=== PATIENT | female | born 1995 | race Caucasian/White ===

== ENCOUNTER → 2019-03-20 09:13 | Outpatient (CLI) | payer BC, SELFPAY ==
--- NOTE | 2019-03-20 09:18 | BI_ITS ---
MAMMOGRAPHY - BILATERAL DIAGNOSTIC REASON FOR EXAM: Female, 24 years old. Tenderness in the lateral aspects of both breast, no masses palpated. Mediolateraloblique and craniocaudal views demonstrate no evidence of dominant parenchymal masses. No cluster of microcalcifications or architectural distortion is seen. No evidence of skin thickening is identified. This is a baseline mammogram so no comparisons are available. Breast Density: The breast tissue is extremely dense which may lower the sensitivity of mammography. CAD was used to assist in final assessment. BI/DIAG MAMM W/CAD, BILAT IMPRESSION: NORMAL MAMMOGRAM BILATERALLY. ASSESSMENT CATEGORY: BIRADS Category 1: Negative. A letter regarding these results will be sent to the patient by the facility within 30 days. FOLLOW UP RECOMMENDATION: No imaging follow up needed. (O) Approximately 10% of breast cancers are not detected by mammography. A normal mammogram should not delay biopsy of a clinically suspicious abnormality. Electronically Signed: Daquan Nayak, at 18:12 EDT Tel , Service support ,
== END ==
PROVIDERS: Family Provider Internal Medicine; PCP Internal Medicine; Referring Provider Obstetrics & Gynecology; Visit Provider Obstetrics & Gynecology
DX: N64.4 Mastodynia (principal)
CPT/HCPCS: 77062; 77066; G0279

== ENCOUNTER 2019-11-02 21:01 | Emergency (ER) | payer BC, SELFPAY ==
[2019-11-02 21:01] VITALS: BP 150/96; PULSE 110; RESP 20; TEMP 36.2; O2SAT 99; BMI 28.9
--- NOTE | 2019-11-02 22:24 | ED.DCSUM_ITS ---
- ER Visit Summary Date of Service: 11/02/19 Chief Complaint: Recently diagnosed with C. difficile. Complaining just malaise and nausea. History of Present Illness: The patient is a 24 F medical history of asthma. States she gets headaches from time to time. Diagnosed with C. difficile on Sunday has been on oral vancomycin and Bentyl. Said the stools are starting to improve. She has had probably 10 bowel movements in the last 24 hours. States initially they thought she had IBS but recently worked her up for her diarrhea which is gotten worse in the last 6 months and determined she had C. difficile. Patient has a mild headache. No family history of intracranial bleeds or aneurysms. She gets headaches from time to time. Denies any neurological symptoms. Denies any falls or trauma. Physical Examination: Ill-appearing young female. Vital signs are stable afebrile. HEENT exam mildly dry mucous membranes. Neck nontender. No meningismus. No lymphadenopathy. Lungs clear to auscultation bilaterally. Heart regular rhythm no murmur. Abdomen soft nontender normal bowel sounds no peritoneal signs. Remedies moves all 4. Neurovascular intact. Equal symmetrical bundle cutter strength. Fingertip to nose within normal limits. Dorsi plantarflexion intact. Neurologic exam normal NIH is 0. Test Results: [] Emergency Department Course and Treatment: Patient treated with IV fluids x1 L. IV Toradol and Zofran for nausea. Clinically her exam is unremarkable other than possibly mild dehydration. Treatment Plan: [] Disposition: discharge Impression: Diarrhea secondary to recently diagnosed C. difficile Cephalgia This note was generated with [employer] dictation software. It may contain incorrect words, spelling, and punctuation that were not noted in review of the chart prior to signing ED Disposition - Plan for ED Patient: Referrals: Yudith Mukherjee MD [Primary Care Provider] -
[2019-11-02 22:46] VITALS: BP 129/99; PULSE 94; RESP 18; TEMP 37.1; O2SAT 100
[2019-11-02] MEDS: 0.9% Normal Saline 1,000 ML 1000 ML IV (22:47)
[2019-11-02] MEDS: Ketorolac 30 MG/ML Syringe IV (22:47)
[2019-11-02] MEDS: Ondansetron 4 MG/2 ML Vial IV (22:47)
[2019-11-02 22:58] LABS: Absolute Lymphocyte Count 2.32 X10^3/uL (0.83-4.51); Absolute Neutrophil Count 4.6 X10^3/uL (2.0-7.7); Basophil# 0.03 X10^3/uL; Basophil% 0.4 % (0-1); Eosinophil# 0.07 X10^3/uL; Eosinophils% 0.9 % (0-5); Hematocrit 40.2 % (37-47); Hemoglobin 13.1 g/dL (12.0-15.0); Lymphocyte # 2.32 X10^3/ul (4.0); Lymphocyte % 29.6 % (19-41); Mean Corp Hgb Conc 32.6 g/dL (32-36); Mean Corpuscular Hgb 29.4 pg (27.0-32.0); Mean Corpuscular Volume 90.1 fL (81-99); Mean Platelet Vol. 11.6 fl (6.2-12.0); Monocyte# 0.76 X10^3/uL; Monocyte% 9.7 % (0-10); NRBC Flagged by Analyzer 0 % (0-5); Neutrophil # 4.62 X10^3/uL (2.7-7.7); Platelet Count 361 K/mm3 (150-450); RBC Distribution Width CV 13.7 % (11.6-14.6); RBC Distribution Width SD 45.4 fl (35.1-43.9); Red Blood Count 4.46 M/mm3 (4.2-5.4); White Blood Count 7.8 K/mm3 (4.4-11.0)
[2019-11-02 23:37] VITALS: BP 131/89; PULSE 86; RESP 16; TEMP 37.1; O2SAT 100
--- NOTE | 2019-11-02 23:50 | ED.DEP ---
ED Disposition - Plan for ED Patient: Disposition: Home or Assisted Living Instructions: Clostridium Difficile Toxin Stool Prescriptions: Ondansetron [Zofran Odt] 4 mg PO Q8H PRN PRN #10 tab PRN Reason: Nausea Prescription Printed Referrals: Yudith Mukherjee MD [Primary Care Provider] - 3-5 Days if not improving Additional Instructions: Continue your vancomycin for your C. difficile. Zofran as needed for nausea. Plenty of fluids and rest. Follow-up with your doctor as needed.
[2019-11-02 23:54] LABS: Anion Gap 7 (5-15); BUN 10 mg/dL (7-18); BUN/Creat Ratio 22.9 RATIO (10-20); Calcium,Total 8.3 mg/dL (8.5-10.1); Chloride 112 mmol/L (98-107); Creatinine, Serum 0.44 mg/dL (0.55-1.02); EST Glomerular Filtration Rate 186 mL/min (>60); Est Glom Filt Rate - Afr Amer 225 mL/min (>60); Estimated Creatinine Clearance 154.59 ml/min; Glucose 77 mg/dL (74-106); Potassium 3.4 mmol/L (3.5-5.1); Sodium Level 140 mmol/L (136-145)
== END 2019-11-03 00:04 | disposition home or self-care (01) ==
PROVIDERS: Emergency Provider Emergency Medicine; PCP Internal Medicine
DX: A04.72 Enterocolitis due to Clostridium difficile, not specified as recurrent (principal); R51 Headache; J45.909 Unspecified asthma, uncomplicated
CPT/HCPCS: 80048; 85025; 96361; 96374; 96375; 99284; J7030; A4216; J2405

== ENCOUNTER → 2020-06-29 | Outpatient (CLI) | payer OTHER, SELFPAY ==
[2020-07-02 03:07] LABS: Chlamydia By Nucleic Acid AMP Negative (Negative)
[2020-07-02 20:17] LABS: Gonococcus By Nucleic Acid AMP Negative (Negative)
[2020-07-02 20:52] LABS: HPV Reflexed? NOT INDICATED
== END | disposition home or self-care (01) ==
LOC: LABSPEC 15:14
PROVIDERS: PCP Internal Medicine; Visit Provider Obstetrics & Gynecology
DX: Z12.4 Encounter for screening for malignant neoplasm of cervix (principal); Z11.3 Encounter for screening for infections with a predominantly sexual mode of transmission
CPT/HCPCS: 87491; 87591; 88175; G0145

== ENCOUNTER → 2020-12-16 16:03 | Outpatient (CLI) | payer OTHER, SELFPAY ==
--- NOTE | 2020-12-16 16:07 | BI_ITS ---
MAMMOGRAPHY - BILATERAL SCREENING REASON FOR EXAM: Female, 25 years old. Routine annual screening examination. PERTINENT HISTORY: Aunts with breast cancer. TECHNIQUE: Digital bilateral breast ryan (3D mammographic acquisition) in the CC and MLO projections. 2-D mediolateral oblique (MLO) and craniocaudad (CC) views of both breasts were obtained. CAD: Full Field Digital Mammography with Computer Added Detection was performed. COMPARISON: Comparison is made with prior examination dated 03/20/2019. FINDINGS: Breast Composition: The breasts are heterogeneously dense, which may obscure small masses. There are no dominant masses or suspicious calcifications. No other significant abnormalities are identified. There has been no significant change since the prior study. BI/SCRN MAMM (CAD)W/RYAN BILAT IMPRESSION: Stable bilateral screening mammogram. Yearly follow-up mammogram recommended. (A) ASSESSMENT CATEGORY: BIRADS Category 1: Negative. A letter regarding these results will be sent to the patient by the facility within 30 days. Approximately 10% of breast cancers are not detected by mammography. A normal mammogram should not delay biopsy of a clinically suspicious abnormality. [id number] Electronically Signed: Alvaro Rocha MD at 8:10 EDT , Service support ,
== END ==
PROVIDERS: PCP Internal Medicine; Referring Provider Obstetrics & Gynecology; Visit Provider Obstetrics & Gynecology
DX: Z12.31 Encounter for screening mammogram for malignant neoplasm of breast (principal)
CPT/HCPCS: 77063; 77067

== ENCOUNTER 2021-07-20 11:52 | Outpatient (CLI) | payer OTHER, SELFPAY ==
[2021-07-22 00:06] LABS: Chlamydia By Nucleic Acid AMP Negative (Negative)
[2021-07-22 14:36] LABS: Gonococcus By Nucleic Acid AMP Negative (Negative)
== END 2021-07-20 23:59 | disposition home or self-care (01) ==
PROVIDERS: PCP Internal Medicine; Visit Provider Obstetrics & Gynecology
DX: Z11.3 Encounter for screening for infections with a predominantly sexual mode of transmission (principal)
CPT/HCPCS: 87491; 87591

== ENCOUNTER → 2022-02-27 | Outpatient (CLI) | payer OTHER, SELFPAY ==
--- NOTE | 2022-02-27 13:31 | BI_ITS ---
MAMMOGRAPHY - BILATERAL SCREENING 3-D TOMOSYNTHESIS REASON FOR EXAM: Female, 27 years old. SCREENING PERTINENT HISTORY: No significant family history. TECHNIQUE: 2-D mammograms and 3-D Tomosynthesis of the breast (s) were performed. CAD was performed. COMPARISON: 12/16/2020 FINDINGS: The breast composition is heterogeneously dense that can obscure small breast masses. Scattered benign calcifications are seen. No dense spiculated masses or suspicious microcalcifications are identified. No architectural distortion is identified. There is no skin thickening or retraction. There has been no significant change since the prior study. BI/SCRN MAMM (CAD)W/RYAN BILAT IMPRESSION: No mammographic signs of malignancy. Routine yearly mammograms recommended. ASSESSMENT CATEGORY: BIRADS Category 1: Negative. A letter regarding these results will be sent to the patient by the facility within 30 days. FOLLOW UP RECOMMENDATION: Yearly follow up mammogram recommended. (A) Approximately 10% of breast cancers are not detected by mammography. A normal mammogram should not delay biopsy of a clinically suspicious abnormality. Electronically Signed: Bo Kimball MD at 14:44 EDT ,
== END | disposition home or self-care (01) ==
LOC: OPBI 13:29
PROVIDERS: PCP Internal Medicine; Visit Provider Student in an Organized Health Care Education/Training Program
DX: Z12.31 Encounter for screening mammogram for malignant neoplasm of breast (principal)
CPT/HCPCS: 77063; 77067

== ENCOUNTER → 2022-09-12 | Outpatient (CLI) | payer OTHER, SELFPAY ==
[2022-09-12 11:30] LABS: Absolute Lymphocyte Count 1.63 X10^3/uL (0.83-4.51); Absolute Neutrophil Count 4.5 X10^3/uL (2.0-7.7); Basophil# 0.03 X10^3/uL; Basophil% 0.4 % (0-1); Eosinophils% 1.4 % (0-5); Hematocrit 34.6 % (37-47); Hemoglobin 10.9 g/dL (12.0-15.0); Lymphocyte # 1.63 X10^3/ul (0.83-4.51); Lymphocyte % 23.3 % (19-41); Mean Corp Hgb Conc 31.5 g/dL (32-36); Mean Corpuscular Hgb 29.6 pg (27.0-32.0); Mean Platelet Vol. 10.4 fl (6.2-12.0); Monocyte# 0.64 X10^3/uL; Monocyte% 9.2 % (0-10); NRBC Flagged by Analyzer 0 % (0-5); Neutrophil # 4.49 X10^3/uL (2.7-7.7); Neutrophil % 64.3 % (47-70); Platelet Count 258 K/mm3 (150-450); RBC Distribution Width CV 13.8 % (11.6-14.6); RBC Distribution Width SD 47.1 fl (35.1-43.9); Red Blood Count 3.68 M/mm3 (4.2-5.4)
[2022-09-12 11:35] LABS: ALB/GLOB Ratio 0.7 RATIO (0.9-2.4); AST(SGOT) 17 U/L (15-37); Alanine Aminotransfer ALT/SGPT 23 U/L (13-56); Albumin, Serum 2.8 g/dL (3.2-5.0); Alkaline Phosphatase 72 U/L (45-117); Anion Gap 6 (5-15); BUN 7 mg/dL (7-18); BUN/Creat Ratio 15.1 RATIO (10-20); Calcium,Total 8.8 mg/dL (8.5-10.1); Chloride 107 mmol/L (98-107); Creatinine, Serum 0.46 mg/dL (0.55-1.02); EST Glomerular Filtration Rate 170 mL/min (>60); Est Glom Filt Rate - Afr Amer 206 mL/min (>60); Globulin 4.1 g/dL (2.2-4.2); Glucose 118 mg/dL (74-106); Glucose Challenge Gest 1H 50g 118 mg/dL (70-140); Potassium 3.6 mmol/L (3.5-5.1); Protein, Total 6.9 g/dL (6.4-8.2); Sodium Level 136 mmol/L (136-145)
[2022-09-12 11:52] LABS: Syphilis Antibodies Non-reactive
== END | disposition home or self-care (01) ==
PROVIDERS: PCP Internal Medicine; Visit Provider Student in an Organized Health Care Education/Training Program
DX: Z34.82 Encounter for supervision of other normal pregnancy, second trimester (principal)
CPT/HCPCS: 36415; 80053; 82950; 85025; 86780

== ENCOUNTER 2022-09-23 16:50 | Outpatient (CLI) | payer OTHER, SELFPAY ==
[2022-09-23 17:09] VITALS: BMI 35.5
[2022-09-23 17:18] VITALS: PULSE 107; O2SAT 100
[2022-09-23 17:19] VITALS: BP 126/85; PULSE 109; TEMP 36.9; O2SAT 100
[2022-09-23] MEDS: Lactated Ringers 1,000 ML 999 ML IV (17:45)
--- NOTE | 2022-09-23 18:08 | OB.TRI.NOTE ---
HPI - General General Date of Service: 09/23/22 HPI Narrative MAEGAN GALEAS, is a 27 F who presents with cramping and spotting. Patient was swimming today and noticed spotting and cramping at that time. Denies heavy bleeding clots, weakness dizziness. PFSH PFSH Home Medications albuterol sulfate 90 mcg/actuation aerosol inhaler (Proventil HFA) 6.7 g IH Q2H PRN PRN Wheezing ##1 03/23/15 [Rx Last Taken Unknown] aspirin 81 mg chewable tablet 81 mg PO DAILY 09/23/22 [History Last Taken Unknown] labetalol 100 mg tablet 100 mg PO DAILY 09/23/22 [History Last Taken Unknown] Allergy/AdvReac Type Severity Reaction Status Date / Time phenazopyridine HCl Allergy Vomiting Verified 11/02/19 21:04 [From Pyridium] tramadol AdvReac Other Verified 11/02/19 21:04 Social History Smoking Status: Never smoker Physical Exam Const alert, oriented x3, no apparent distress, average body habitus and no limitations HEENT moist oral mucous membranes Eyes PERRL Neck full ROM Resp normal respiratory effort, no retractions and no use of accessory muscles GI GI Narrative: Soft, nontender, gravid. No rebound tenderness or guarding Narrative: Cervical exam: Closed thick and high. No bleeding noted vaginally. Bedside ultrasound cephalic CHER subjectively within normal limits. Placenta appears normal Back/Spine no CVA tenderness Extremity normal to inspection, full ROM and no clubbing, cyanosis or edema Neuro moves all extremities and no focal motor deficits Psych mental status grossly normal, affect normal, speech normal and activity/motor behavior normal Assessment & Plan (1) : PLAN: Patient seen and examined. Called by nursing noted cramping and spotting after swimming. Given verbal orders for 1 L LR bolus to nursing and urine analysis. Patient overall comfortable in bed. Abdomen soft nontender. No vaginal bleeding noted on pad. Bedside ultrasound all reassuring. heart tones reassuring. No signs of contractions. Vaginal exam closed with no signs of vaginal bleeding. Urine very dark, instructed nursing to send for analysis. Denies fevers or chills, negative CVA tenderness no signs of pyelonephritis. Will evaluate urine and continue to IV hydrate. Patient overall feels reassured. After further discussion patient also feels like she may have a UTI
[2022-09-23 18:15] LABS: Color, Urine Straw (Yellow); Glucose, Dipstick Normal (Normal); Ketone-Dipstick Negative (Negative); Leukocyte Esterase-Dipstick 25 /ul (Negative); Nitrite-Dipstick Negative (Negative); Occult Blood-Urine 250 /ul (Negative); Protein-Dipstick 30 mg/dl (Negative); Urine Bilirubin Dipstick Negative (Negative); Urine Clarity Cloudy (Clear); Urine Urobilinogen Normal (Normal)
== END 2022-09-23 19:05 | disposition home or self-care (01) ==
LOC: WPOUT 17:05 → WP 17:05
PROVIDERS: PCP Internal Medicine; Visit Provider Obstetrics & Gynecology
DX: O99.891 Other specified diseases and conditions complicating pregnancy (principal); R25.2 Cramp and spasm; Z3A.00 Weeks of gestation of pregnancy not specified; O26.859 Spotting complicating pregnancy, unspecified trimester
CPT/HCPCS: 96360; 59050; 76815; 81002; 87086; 87088; 99221; J7120; G0378

== ENCOUNTER 2022-09-25 16:15 | Outpatient (CLI) | payer OTHER, SELFPAY ==
[2022-09-25 16:23] VITALS: BP 127/87; PULSE 101; TEMP 36.5; O2SAT 100
[2022-09-25 16:28] VITALS: BMI 35.9
--- NOTE | 2022-09-25 16:39 | US_ITS ---
STUDY: ABDOMINAL ULTRASOUND - RIGHT UPPER QUADRANT REASON FOR VISIT: Female, 27 years old RUQ pain , . TECHNIQUE: Ultrasound evaluation of the right upper quadrant was performed with real-time and static katz-scale imaging. TECHNICAL QUALITY: Adequate. COMPARISON: None. FINDINGS: Liver: The liver measures 17.6 cm. There is normal echogenicity of the liver. The bile ducts are within normal limits. There is hepatic color flow. The direction of portal flow is hepatopetal. There is no demonstrated mass lesion. Gallbladder: Normal distended gallbladder. The gallbladder wall measures 2 mm. There is a negative sonographic Roche''s sign. There is no pericholecystic fluid. There are no gallstones. Common Bile Duct (C.B.D.): The common bile duct measures 7 mm. Pancreas: Normal size of the head, body and tail of the pancreas. There is normal echogenicity of the pancreas. There is no demonstrated pancreatic mass or cyst. Right Kidney: Normal size of the right kidney. The right kidney measures 11.6 cm. Normal renal cortex. The right cortex measures 1.5 cm. There is no demonstrated renal mass or cyst. There is moderate hydronephrosis of the right kidney. There are 0.5 and 0.7 cm echogenic structures with possible stones versus prominent vessels. US/Abdomen Limited IMPRESSION: Right hydronephrosis. Possible right renal stones versus prominent vessels. Electronically Signed: Jt Cantu MD at 18:22 EDT ,
[2022-09-25 17:07] LABS: Absolute Lymphocyte Count 1.59 X10^3/uL (0.83-4.51); Absolute Neutrophil Count 5.4 X10^3/uL (2.0-7.7); Basophil# 0.02 X10^3/uL; Basophil% 0.3 % (0-1); Eosinophil# 0.06 X10^3/uL; Eosinophils% 0.8 % (0-5); Hematocrit 33.7 % (37-47); Hemoglobin 10.8 g/dL (12.0-15.0); Lymphocyte # 1.59 X10^3/ul (0.83-4.51); Lymphocyte % 20.2 % (19-41); Mean Corpuscular Volume 93.6 fL (81-99); Mean Platelet Vol. 10.2 fl (6.2-12.0); Monocyte# 0.73 X10^3/uL; Monocyte% 9.3 % (0-10); NRBC Flagged by Analyzer 0 % (0-5); Neutrophil # 5.42 X10^3/uL (2.7-7.7); Neutrophil % 68.5 % (47-70); Platelet Count 229 K/mm3 (150-450); RBC Distribution Width CV 13.6 % (11.6-14.6); RBC Distribution Width SD 46.5 fl (35.1-43.9); White Blood Count 7.9 K/mm3 (4.4-11.0)
--- NOTE | 2022-09-25 17:27 | HP.PCM.OB_ITS ---
History and Physical Date of Admission: 09/25/22 HPI: 27-year-old at 27/1-week, TYRA 12/24/2022 by LMP, presenting with pain. Patient reports that she was feeling well yesterday and this morning. Reports that around 1130 this morning started having right upper quadrant and flank pain radiating down into her groin. She tried Tylenol, but vomited shortly after secondary to pain. Tried warm showers to help with pain. Denies bleeding vaginally or in urine. Feels like she is having urinary dribbling today and pressure. Denies leaking of fluid. Reports movement. Denies contractions. Denies headache or vision changes, chest pain or shortness of breath, nausea, fevers or chills, diarrhea or constipation. States that hematuria has resolved. Patient is taking Keflex for a UTI diagnosed over the weekend. complicated by: Chronic hypertension, partial previa [employer] history: G1: Term G2: Term G3: SAB G4: Current Medical history: 1. Chronic hypertension on labetalol 100 mg twice daily Surgical history: 1. Dilation and curettage in 2017 2. Stow tooth extraction in 2019 Medications: 1. Albuterol as needed 2. 81 mg aspirin daily 3. Labetalol 100 mg twice daily 4. Keflex for UTI x1 week Allergies: 1. Pyridium caused vomiting 2. Tramadol causes nausea vomiting Family history: Noncontributory Review of system: Negative otherwise stated above Physical exam: Vitals pending General: No acute distress, uncomfortable in appearance but resting in bed not constantly moving to get comfortable Cardiorespiratory: No increased effort Abdomen: Soft, tender right upper quadrant and right back, the rest of the abdomen was soft and nontender. Extremities: No edema Musculoskeletal: Moves all extremities equally Neurologic: Cranial nerves II through XII grossly intact, no focal deficits heart rate:135/mod kendy/+accel/no decel [place]: quiet BSUS: Fetus in a transverse position head maternal left. movement noted. Subjectively normal fluid. Maternal bladder with some urine, small and not distended. Assessment/plan: 27-year-old at 27/1 weeks presenting with abdominal and flank pain. Working diagnosis of nephrolithiasis versus cholecystitis/cholelithiasis. ? status is reassuring ?CBC and CMP. ?Pain control with Tylenol and oxycodone as needed. Nausea controlled with Zofran and Phenergan ?No evidence of sepsis at this time. No leukocytosis. It is possible that patient does have pyelonephritis, however urine culture was negative. ?We will get abdominal ultrasound to assess gallbladder. If within normal limits, will get CT abdomen and pelvis to rule out nephrolithiasis. ?IV fluid hydrate with 2 L of LR Discussed possible etiologies of pain and plan with the patient and bedside RN. Patient understands and all questions were answered. Continue home medications.
[2022-09-25] MEDS: Acetaminophen 500 MG Tablet 1000 MG PO (17:28)
[2022-09-25] MEDS: Ondansetron 4 MG/2 ML Vial IV (17:28)
[2022-09-25 17:35] LABS: ALB/GLOB Ratio 0.7 RATIO (0.9-2.4); AST(SGOT) 14 U/L (15-37); Alanine Aminotransfer ALT/SGPT 20 U/L (13-56); Albumin, Serum 2.9 g/dL (3.2-5.0); Alkaline Phosphatase 72 U/L (45-117); Anion Gap 6 (5-15); BUN 10 mg/dL (7-18); BUN/Creat Ratio 18.3 RATIO (10-20); Chloride 107 mmol/L (98-107); Creatinine, Serum 0.54 mg/dL (0.55-1.02); EST Glomerular Filtration Rate 141 mL/min (>60); Est Glom Filt Rate - Afr Amer 170 mL/min (>60); Estimated Creatinine Clearance 122.67 ml/min; Globulin 4.3 g/dL (2.2-4.2); Glucose 81 mg/dL (74-106); Protein, Total 7.2 g/dL (6.4-8.2); Sodium Level 134 mmol/L (136-145)
[2022-09-25] MEDS: Lactated Ringers 1,000 ML 999 ML IV ×2 (18:16→19:36)
[2022-09-25] MEDS: oxyCODONE 5 MG Tablet PO ×2 (18:16→22:24)
--- NOTE | 2022-09-25 18:46 | CT_ITS ---
STUDY: CT ABDOMEN AND PELVIS WITHOUT CONTRAST REASON FOR EXAM: Female, 27 years old. RUQ pain/R/O Kidney stone RADIATION DOSAGE (If Supplied By Facility): CTDIvol = ( 16.40 ) mGy, DLP = ( 794.68 ) mGycm TECHNIQUE: Transaxial images were obtained from the dome of the diaphragm to the symphysis pubis without oral contrast, and without intravenous contrast. Sagittal and coronal images were reconstructed. Individualized dose optimization techniques were used for this CT. COMPARISON: Ultrasound. FINDINGS: The visualized lung bases are unremarkable. The visualized portions of the heart are within normal limits. Normal liver. Normal gallbladder and extrahepatic biliary system. Normal spleen. Normal pancreas. Normal bilateral adrenal glands. There is moderate right hydronephrosis. There are 0.3 and 0.4 cm stones of the right kidney. There is 0.4 cm right pelvic calcification with distal ureteral stone versus phlebolith. Normal left kidney. Normal visualized stomach. Normal small intestine. Normal colon. The appendix is visualized and appears normal. Normal abdominal aorta. Normal inferior vena cava. Normal retroperitoneum. Normal urinary bladder. There is single intrauterine gestation in breech position. There is no free fluid in the abdomen or pelvis. Normal abdominal wall. Normal osseous structures. CT/Abdomen/Pelvis without Cont IMPRESSION: Right renal stones with hydronephrosis. Possible distal ureteral stone. Electronically Signed: Jt Cantu MD at 19:47 EDT ,
[2022-09-25 19:32] VITALS: BP 129/84; PULSE 106; TEMP 36.6
[2022-09-25] MEDS: Labetalol 100 MG Tablet PO (19:39)
[2022-09-25] MEDS: Cephalexin 500 MG Capsule PO ×2 (19:39→23:44)
[2022-09-25 20:52] VITALS: PULSE 97; O2SAT 100
[2022-09-25] MEDS: Lactated Ringers 1,000 ML 150 ML IV (21:20)
[2022-09-25] MEDS: Tamsulosin HCl 0.4 MG Capsule PO (21:20)
[2022-09-25 22:24] VITALS: BP 117/71; PULSE 100
[2022-09-25 22:26] VITALS: TEMP 36.6
[2022-09-26 02:36] VITALS: BP 122/69; PULSE 105; TEMP 36.5
[2022-09-26] MEDS: oxyCODONE 5 MG Tablet PO ×3 (02:38→12:03)
[2022-09-26] MEDS: Lactated Ringers 1,000 ML 150 ML IV ×2 (04:01→09:04)
[2022-09-26 06:26] VITALS: TEMP 36.3
[2022-09-26 06:27] VITALS: BP 120/75; PULSE 99
[2022-09-26] MEDS: Ondansetron 4 MG/2 ML Vial IV (07:40)
--- NOTE | 2022-09-26 08:26 | PCM.PN.OB ---
Subjective Subjective Patient more comfortable than yesterday, however still in pain. Reports left flank soreness. Denies leaking of fluid or vaginal bleeding. Reports movement. Objective Data Objective Data Vital Signs: Vital Signs Temp Pulse BP Pulse Ox 97.3 F L 99 120/75 100 09/26/22 06:26 09/26/22 06:27 09/26/22 06:27 09/25/22 20:52 Weight: 88.961 kg Body Mass Index (BMI) 35.9 Intake & Output: Intake and Output for Last 24 Hours 09/24/22 09/25/22 09/26/22 23:59 23:59 23:59 Intake Total 2000 / 1999 1000 / 1000 Output Total 800 / 800 1200 / 1200 Balance 1200 / 1200 -200 / -200 Lab / Micro Data Attestation: I reviewed the patient's lab results. Result Diagrams: 09/25/22 16:55 09/25/22 16:55 Labs: Laboratory Results - last 24 hr 09/25/22 16:55: WBC 7.9, RBC 3.60 L, Hgb 10.8 L, Hct 33.7 L, MCV 93.6, MCH 30.0, MCHC 32.0, RDW Std Deviation 46.5 H, RDW Coeff of So 13.6, Plt Count 229, MPV 10.2, Immature Gran % (Auto) 0.900, Neut % (Auto) 68.5, Lymph % (Auto) 20.2, [place] % (Auto) 9.3, Eos % (Auto) 0.8, Baso % (Auto) 0.3, Absolute Neuts (auto) 5.4, Absolute Lymphs (auto) 1.59, Nucleated RBC % 0 09/25/22 16:55: Sodium 134 L, Potassium 4.0, Chloride 107, Carbon Dioxide 21.0, Anion Gap 6, BUN 10, Creatinine 0.54 L, Estim Creat Clear Calc 122.67, Est GFR (MDRD) Af Amer 170, Est GFR (MDRD) Non-Af 141, BUN/Creatinine Ratio 18.3, Glucose 81, Calcium 9.0, Total Bilirubin 0.20, AST 14 L, ALT 20, Alkaline Phosphatase 72, Total Protein 7.2, Albumin 2.9 L, Globulin 4.3 H, Albumin/Globulin Ratio 0.7 L Radiography Diagnostic Testing: Radiology Impression Abdomen Ultrasound 09/25/22 16:39 IMPRESSION: Right hydronephrosis. Possible right renal stones versus prominent vessels. Electronically Signed: Jt Cantu MD at 18:22 EDT , Abdomen/Pelvis CT 09/25/22 18:46 IMPRESSION: Right renal stones with hydronephrosis. Possible distal ureteral stone. Electronically Signed: Jt Cantu MD at 19:47 EDT , Physical Exam Const alert, oriented x3 and no apparent distress HEENT normocephalic Neck full ROM Resp normal respiratory effort and no use of accessory muscles Cardio regular rate GI soft to palpation, non-tender and non-distended GI Narrative: Right upper abdomen was tender to touch yesterday, no longer tender. Right flank less tender to palpation, however some tenderness still persist. Inspection: gravid Back/Spine normal ROM and normal to inspection Extremity no pedal edema Skin no rashes or lesions noted Neuro moves all extremities, no focal motor deficits and no sensory deficits noted Psych mental status grossly normal Assessment & Plan (1) Kidney stone complicating : PLAN: 27-year-old at 27/2 weeks admitted with right nephrolithiasis. ?Patient is overall feeling better, however is still in pain. ?Continue IV fluid hydration and p.o. hydration. Continue oxycodone and Tylenol as needed for pain. Zofran and Phenergan as needed for nausea. ?Flomax once daily, spaced from her antihypertensive to avoid hypotension. ?Okay for heating pad to back for limited amounts of time. ?Discussed expectations with kidney stone. Discussed that pain will improve once kidney stone has passed. However, patient will be sore for several days to weeks on her right side. Discussed possibility of need for stent, which would be determined by urologist if needed. ?We will continue to monitor throughout the morning and early afternoon. If pain is worsening, will consult urology. Reviewed plan of care with patient and bedside RN. All questions answered. Diet: Regular IVFs: LR 150 cc/hr DVT PPX: ambulation, SCDs when in bed Dispo: consider home this afternoon.
[2022-09-26 08:59] VITALS: BP 129/84; PULSE 98; TEMP 36.5; O2SAT 100
[2022-09-26] MEDS: Cephalexin 500 MG Capsule PO (09:01)
[2022-09-26] MEDS: Acetaminophen 500 MG Tablet 1000 MG PO (09:14)
[2022-09-26] MEDS: Tamsulosin HCl 0.4 MG Capsule PO (12:03)
--- NOTE | 2022-09-26 17:06 | DCINST_ITS ---
Discharge Instructions Diet Discharge Diet: No restrictions Activity Discharge Activity: Return to Normal Activity May resume sexual activity in: No Restrictions Weight Bearing Status: Weight bearing as tolerated Dressing / Incision Call your doctor if you observe: Fever of 101 or Higher, Inability to urinate and Uncontrolled pain Follow Up Care Please Follow Up With: Zainab Gibson DO When: As scheduled Test Results: Test results from this visit will be discussed in further detail at your follow- up appointment, if applicable. Discharge Plan Admission Reason For Visit: Pain Attending Provider: Zainab Gibson Primary Care Provider: Yudith Mukherjee Discharge Date/Time: 09/26/22 12:15 Instructions Patient Instructions: Kick Counts, ED False Labor, OB Triage: Return to Hospital or Notify Physician if you Experience: Discharge Orders/Prescriptions Prescriptions: New oxycodone 5 mg Tablet 5 mg PO Q4H PRN PRN (Reason: Pain Score 6-10) 3 Days Qty: 14 0RF oxycodone 5 mg tablet 5 mg PO Q6H PRN (Reason: pain (scale score 7-10)) 3 Days Qty: 14 0RF ondansetron 4 mg tablet,disintegrating 4 mg PO Q6H PRN (Reason: nausea and vomiting) Qty: 30 1RF promethazine 12.5 mg tablet 12.5 mg PO Q6H PRN (Reason: nausea and vomiting) Qty: 60 1RF Continued albuterol sulfate [Proventil HFA] 6.7 GM HFA aerosol inhaler 6.7 g IH Q2H PRN PRN (Reason: Wheezing) Qty: 1 1RF Rx Instructions: aspirin 81 mg Tablet,Chewable 81 mg PO DAILY labetalol 100 mg tablet 100 mg PO DAILY Label Comments: TAKE 1 TABLET BY MOUTH EVERY DAY Keflex 500 mg PO.IVFORM DAILY Referrals / Follow Up: Yudith Mukherjee MD [Primary Care Provider] - Disposition Patient Disposition: Home, Self Care
== END 2022-09-26 12:15 | disposition home or self-care (01) ==
LOC: WPOUT 16:21 → WP 16:22
PROVIDERS: PCP Internal Medicine; Referring Provider Student in an Organized Health Care Education/Training Program; Visit Provider Student in an Organized Health Care Education/Training Program
DX: O99.891 Other specified diseases and conditions complicating pregnancy (principal); Z3A.27 27 weeks gestation of pregnancy; N13.2 Hydronephrosis with renal and ureteral calculous obstruction
CPT/HCPCS: 96374; 96361; 36415; 59025; 59050; 74176; 76705; 80053; 85025; 99221; J7120; G0378; J2405

== ENCOUNTER → 2022-11-29 | Outpatient (CLI) | payer OTHER, SELFPAY ==
[2022-11-29 15:16] LABS: Absolute Lymphocyte Count 1.73 X10^3/uL (0.83-4.51); Absolute Neutrophil Count 5.4 X10^3/uL (2.0-7.7); Basophil# 0.03 X10^3/uL; Basophil% 0.4 % (0-1); Eosinophil# 0.07 X10^3/uL; Eosinophils% 0.9 % (0-5); Hematocrit 33.2 % (37-47); Hemoglobin 10.4 g/dL (12.0-15.0); Lymphocyte # 1.73 X10^3/ul (0.83-4.51); Lymphocyte % 21.6 % (19-41); Mean Corp Hgb Conc 31.3 g/dL (32-36); Mean Corpuscular Hgb 29.1 pg (27.0-32.0); Mean Corpuscular Volume 92.7 fL (81-99); Mean Platelet Vol. 11.3 fl (6.2-12.0); Monocyte# 0.75 X10^3/uL; Monocyte% 9.4 % (0-10); NRBC Flagged by Analyzer 0 % (0-5); Neutrophil # 5.37 X10^3/uL (2.7-7.7); Neutrophil % 66.8 % (47-70); Platelet Count 213 K/mm3 (150-450); RBC Distribution Width CV 14.5 % (11.6-14.6); RBC Distribution Width SD 49.1 fl (35.1-43.9); Red Blood Count 3.58 M/mm3 (4.2-5.4)
[2022-11-29 16:21] LABS: ALB/GLOB Ratio 0.6 RATIO (0.9-2.4); AST(SGOT) 17 U/L (15-37); Alanine Aminotransfer ALT/SGPT 19 U/L (13-56); Albumin, Serum 2.6 g/dL (3.2-5.0); Alkaline Phosphatase 103 U/L (45-117); Anion Gap 10 (5-15); BUN 5 mg/dL (7-18); BUN/Creat Ratio 10.4 RATIO (10-20); Chloride 107 mmol/L (98-107); Creatinine, Serum 0.48 mg/dL (0.55-1.02); EST Glomerular Filtration Rate 164 mL/min (>60); Est Glom Filt Rate - Afr Amer 199 mL/min (>60); Globulin 4.2 g/dL (2.2-4.2); Glucose 75 mg/dL (74-106); LDH 182 U/L (84-246); Potassium 3.5 mmol/L (3.5-5.1); Protein, Total 6.8 g/dL (6.4-8.2); Sodium Level 138 mmol/L (136-145)
[2022-11-29 16:29] LABS: Protein, Urine (Random) 12.1 mg/dL (<11.9); Protein:Creat Ratio 340 mg/g CRE (0-200)
== END | disposition home or self-care (01) ==
LOC: WOBLAB 14:33
PROVIDERS: PCP Internal Medicine; Visit Provider Student in an Organized Health Care Education/Training Program
DX: O16.3 Unspecified maternal hypertension, third trimester (principal); Z36.85 Encounter for antenatal screening for Streptococcus B; Z3A.00 Weeks of gestation of pregnancy not specified
CPT/HCPCS: 36415; 80053; 82570; 83615; 84156; 85025; 87077; 87081; 87086; 87088; 87186

== ENCOUNTER 2022-12-04 07:00 | Inpatient (IN) | payer OTHER, SELFPAY ==
[2022-12-04] VITALS (19 sets, daily range): BP systolic 92–134; BP diastolic 52–83; PULSE 85–131; RESP 15–16; TEMP 36.3–36.8; O2SAT 98–100; BMI 38.7
--- NOTE | 2022-12-04 07:28 | HP.PCM.OB_ITS ---
History and Physical Date of Admission: 12/04/22 Chief complaint: Induction of labor marce without severe features History present illness: 27-year-old at 37 weeks and 1 day with TYRA 12/24/2022 arrives for induction of labor for Marce without severe features. Patient denies headache, visual changes, chest pain, shortness of breath, nausea vomit, right upper quadrant pain. Patient states good movement. is complicated by Marce without severe features currently on labetalol 100 mg twice daily, GBS positive, asthma, BRCA2, BMI 38 Obstetric history: G1: male G2: female G3: Current Past medical history: Chronic hypertension, asthma Medications: Labetalol 100 mg twice daily, Advair, Flonase, albuterol Allergies: Pyridium, Ultram Past surgical history: D&C, wisdom tooth extraction Family history: Denies history DVT or PE Social history: Denies smoking, alcohol use, drug use Review of systems: Besides above pertinent positives a full review of systems was performed and found to be negative Physical exam: Vitals: Pulse 107 temperature 97.3 ?F SPO2 90% on room air General: Normal-appearing no acute distress HEENT: Normocephalic/atraumatic no cervical lymphadenopathy Cardiac/respiratory: No use of accessory muscles, nonlabored breathing Abdomen: Soft, nontender, gravid Extremities: No peripheral edema normal peripheral pulses Psych: Normal affect normal demeanor nonpressured speech Labs: White blood cell count 7.4 hemoglobin 10.0 hematocrit 30.9% platelets 225 Bedside ultrasound: Breech Assessment and plan: 27-year-old at 37 weeks and 1 day originally arrived for induction of labor for marce without severe features but now noted to have bedside ultrasound showing breech presentation. Educated patient on findings and discussed options including version risk benefits alternatives, patient declines version. Educated patient on risk benefits alternatives of primary section, including its increased risks. Risks include but are not limited to visceral or vascular injury, prolonged hospitalization, blood loss need for transfusion, reoperation. Patient state understanding wish to proceed. All questions were answered and consent was signed. Patient also desires tubal ligation, educated patient on tubal ligation being permanent, patient states understanding and wi shes to proceed, verbal consent obtained and patient reconfirmed her understanding of permanent procedure of tubal. For 2 g Ancef and 500 mg of azithromycin. Marce without severe features: Currently on labetalol 100 mg twice daily. We will continue to monitor blood pressures and symptoms and treat appropriately BRCA2: Patient educated on BRCA2 throughout her but refused breast imaging for concerns although educated multiple times about safety and risks with not performing breast imaging during with the risk of malignancy with BRCA2, patient state understanding and still declined. We will follow-up
[2022-12-04] MEDS: Lactated Ringers 1,000 ML 50 ML IV (07:57)
[2022-12-04 08:07] LABS: Absolute Neutrophil Count 4.2 X10^3/uL (2.0-7.7); Basophil# 0.04 X10^3/uL; Basophil% 0.5 % (0-1); Eosinophil# 0.09 X10^3/uL; Eosinophils% 1.2 % (0-5); Hematocrit 30.9 % (37-47); Lymphocyte % 27.1 % (19-41); Mean Corp Hgb Conc 32.4 g/dL (32-36); Mean Corpuscular Hgb 29.6 pg (27.0-32.0); Mean Corpuscular Volume 91.4 fL (81-99); Mean Platelet Vol. 11.4 fl (6.2-12.0); Monocyte# 0.88 X10^3/uL; Monocyte% 11.9 % (0-10); NRBC Flagged by Analyzer 0 % (0-5); Neutrophil # 4.24 X10^3/uL (2.7-7.7); Neutrophil % 57.5 % (47-70); Platelet Count 225 K/mm3 (150-450); RBC Distribution Width CV 14.7 % (11.6-14.6); RBC Distribution Width SD 48.8 fl (35.1-43.9); Red Blood Count 3.38 M/mm3 (4.2-5.4); White Blood Count 7.4 K/mm3 (4.4-11.0)
[2022-12-04 08:56] LABS: Syphilis Antibodies Non-reactive
[2022-12-04] MEDS: Lactated Ringers 1,000 ML 999 ML IV ×2 (13:04→16:02)
[2022-12-04] MEDS: Sodium Citrate/Citric Acid 30 ML UDC PO (14:14)
[2022-12-04] MEDS: Acetaminophen 500 MG Tablet PO (14:14)
[2022-12-04] MEDS: Cefazolin 2 GM in 0.9% Normal Saline 100 ML IV (14:20)
--- NOTE | 2022-12-04 14:46 | FALS_PTH ---
PATIENT: MAEGAN GALEAS LOC: [facility] U#:[id number] AGE/SX: ROOM: WP009 RE12/04/[address]: Dr. Ayush Gibson MD : 1995 BED: 1 DIS: 12/06/2022 SPEC #: [id number] RECD: 12/04/22 17:27 STATUS: ALBERTO REQ #: [id number] SHERRY: 12/04/22 14:[address]: Ayush Gibson DEPT: SURGICAL PATHOLOGY RECD BY: Ginger Apodaca ENTERED: 12/05/22 09:36 SP TYPE: FALL TUBES OTHR DR: Dr. Yudith Mukherjee MD Tissues: Fallopian tube Procedures: Surgery Specimen Level II HEADER OPERATION: Tubal ligation PRE-OP DIAGNOSIS: Sterilization TISSUE SUBMITTED: Fallopian tubes MICROSCOPIC DIAGNOSIS Right fallopian tube, salpingectomy: Complete segment of fallopian tube with no pathologic change. Left fallopian tube, salpingectomy: Complete segment of fallopian tube with no pathologic change. AM:dionisio 12/06/2022 MICROSCOPIC DESCRIPTION Slides are reviewed. GROSS DESCRIPTION Received in fixative is one container labeled with the patient's name and designated bilateral fallopian tubes, right suture. The specimen consists of bilateral fallopian tubes including fimbrial ends. The right fallopian tube measures 5.0 cm in length and 0.6 cm in diameter and left fallopian tube measures 6.5 cm in length and 1.0 cm in diameter. Sections reveal unremarkable cut surfaces. Vice President Global Advertising Sales sections are submitted in two cassettes as follows: 1 - right fallopian tube, 2 - left fallopian tube. / MARI:dionisio 12/05/2022 TC:4 CPT: 74437 x2
--- NOTE | 2022-12-04 15:15 | OP.PCM_ITS ---
Details Operative Information Date of Procedure: 12/04/22 Pre-Operative Diagnosis: Term, superimposed preeclampsia without severe features, breech, desires permanent sterilization Post-Operative Diagnosis: Term, superimposed preeclampsia without severe features, breech, desires permanent sterilization Indications Narrative: Procedure: Primary low transverse section Via Pfannenstiel incision, bilateral salpingectomy Surgeon: Ayush Gibson MD Anesthesia: Spinal EBL: 800 cc Urine output: 100 cc IV fluids: 800 cc Complications: None Specimen: None Findings: Male infant in breech presentation, Apgars 9/9. Normal uterus, tubes, and ovaries Consent: Patient arrived for induction of labor found on bedside ultrasound to be breech risk-benefit alternatives discussed and patient elects for primary section Via Pfannenstiel incision and bilateral salpingectomy. Patient understands risk of the procedure include but are not limited to visceral or vascular injury, prolonged hospitalization, blood loss need for transfusion, reoperation. Patient state understanding wish to proceed. All questions were answered and consent was signed. Procedure: Patient was brought back to the OR where spinal anesthesia was found to be adequate. 2 g of Ancef and 500 mg of azithromycin were given for infection prophylaxis. Patient prepped and draped in a supine position with leftward tilt. A Pfannenstiel incision was made at the skin with a scalpel. The incision was carried down to the fascia with a scalpel. The fascia was excised and extended laterally. Inferior aspect of the fascia was grasped with a clamp and the underlying rectus and pyramidalis muscle were dissected off sharply. In a similar fashion the superior aspect of the fascia was grasped with a clamp and the underlying rectus muscle was dissected off sharply. Rectus muscle was dissected at the midline down to the level of pubic symphysis. Preperitoneal fatty tissue was noted and peritoneum was entered bluntly. Peritoneum was extended superiorly and inferiorly with good visualization of bladder. Bladder blade was inserted and vesicouterine peritoneum was identified. Low transverse hysterotomy was made. He was placed into the incision and the bladder blade was removed. Baby was delivered in standard breech fashion. Cord was clamped and cut. Baby handed off to nursing. Placenta was delivered via cord traction and fundal massage. IV oxytocin was initiated in order to facilitate uterine contractions. Uterus was exteriorized and wiped out with dry laparotomy sponge in order to remove remaining placental membranes. Uterus was closed in a continuous running fashion. [id number] sutures were used for hemostasis and a Bovie. Good hemostasis was noted. Right fallopian tube was identified to the fimbria and the mesosalpinx was cut and cauterized with LigaSure device, the fallopian tube was transected at the cornua and sent to pathology. Good hemostasis was noted. The left fallopian tube was identified to the fimbria and the mesosalpinx was cut and cauterized with a LigaSure device, the left loping tube was transected at the cornua and sent to pathology. Good hemostasis was noted. Uterus was placed back in the abdominal cavity and all operative sites were reinspected, good hemostasis was noted. Fascia was closed in continuous running fashion with PDS suture. Subcutaneous irrigation was performed and good hemostasis was noted. Skin was closed in a subcuticular fashion. Good hemostasis was noted. All counts were correct x2. Patient tolerated procedure well and was brought to recovery in a stable condition. ion implant machine operator #1: Jeevan Leblanc
[2022-12-04] MEDS: Oxytocin 15 Units/NS 250ml 15 UNITS/250 ML IV.SOLN 83 UNITS IV (15:55)
[2022-12-04] MEDS: Ketorolac 30 MG/ML Syringe IV ×2 (16:00→22:09)
--- NOTE | 2022-12-04 16:11 | NURSING ---
Call place to Aristides Elizondo CNA on pt. bp of 92/53 and symptomatic. Aristides TUTTLEA would like 500 fluid bolus of LR and if still low bp run another fluid bolus 500 fluid bolus
--- NOTE | 2022-12-04 16:28 | NURSING ---
Dr. Ayush Gibson would like labetolol held if systolic below 100 or diastolic below 70
[2022-12-04 17:48] LABS: Pathology Specimen OB SEE PATHOLOGY REPORT
[2022-12-04] MEDS: Acetaminophen 500 MG Tablet 1000 MG PO (19:55)
[2022-12-05] VITALS (12 sets, daily range): BP systolic 110–136; BP diastolic 68–85; PULSE 78–102; RESP 12–16; TEMP 36.2–36.7; O2SAT 96–100
[2022-12-05] MEDS: Labetalol 100 MG Tablet PO ×2 (00:21→22:28)
[2022-12-05] MEDS: Acetaminophen 500 MG Tablet 1000 MG PO ×4 (02:12→21:28)
--- NOTE | 2022-12-05 03:28 | DCINST_ITS ---
Discharge Instructions Diet Discharge Diet: No restrictions Activity Discharge Activity: Return to Normal Activity, May Drive, May Shower and - (No tub baths for 2 weeks) May resume sexual activity in: 6-8 weeks Lifting Restrictions: No lifting over 25 pounds for 2 to 3 weeks Dressing / Incision Call your doctor if your incision/area has: Continuous Slow Oozing and Foul Smelling Discharge Call your doctor if you observe: Fever of 101 or Higher, Shortness of breath and Chest pain Follow Up Care Please Follow Up With: Ayush Gibson MD When: 1 week blood pressure check, 2 weeks postoperative Test Results: Test results from this visit will be discussed in further detail at your follow- up appointment, if applicable. Discharge Plan Admission Admit Date/Time: 12/04/22 07:00 Primary Reason for Your Visit: Primary section Attending Provider: Ayush Gibson Primary Care Provider: Yudith Mukherjee Instructions Additional Instructions / Restrictions: Regular diet. Okay to shower. No tub baths for 2 weeks. No lifting over 25 pounds for 2 to 3 weeks. No intercourse for 6 to 8 weeks. Call if headache, vi brenda changes, chest pain, shortness of breath. Follow-up 1 week blood pressure check, 2 weeks Discharge Orders/Prescriptions Prescriptions: New oxycodone 5 mg Tablet 5 mg PO Q6H PRN PRN (Reason: Pain Score 7-10) 4 Days Qty: 16 0RF Continued albuterol sulfate [Proventil HFA] 6.7 GM HFA aerosol inhaler 6.7 g IH Q2H PRN PRN (Reason: Wheezing) Qty: 1 1RF Rx Instructions: labetalol 100 mg tablet 100 mg PO DAILY Label Comments: TAKE 1 TABLET BY MOUTH EVERY DAY Discontinued aspirin 81 mg Tablet,Chewable 81 mg PO DAILY Keflex 500 mg PO.IVFORM DAILY oxycodone 5 mg Tablet 5 mg PO Q4H PRN PRN (Reason: Pain Score 6-10) 3 Days Qty: 14 0RF oxycodone 5 mg tablet 5 mg PO Q6H PRN (Reason: pain (scale score 7-10)) 3 Days Qty: 14 0RF ondansetron 4 mg tablet,disintegrating 4 mg PO Q6H PRN (Reason: nausea and vomiting) Qty: 30 1RF promethazine 12.5 mg tablet 12.5 mg PO Q6H PRN (Reason: nausea and vomiting) Qty: 60 1RF PNV #[id number] 27 mg iron-1 mg -300 mg-50 mg Capsule 1 cap PO DAILY Referrals / Follow Up: Yudith Mukherjee MD [Primary Care Provider] - Disposition Disposition (needs filled in before D/C Order can be placed): Home, Self Care
--- NOTE | 2022-12-05 03:28 | PN.OBGYN_ITS ---
Subjective Subjective No overnight complaints. Denies headache, vision change, chest pain, shortness of breath, nausea vomit, right upper quadrant pain. Objective Data Objective Data Vital Signs: Vital Signs Temp Pulse Resp BP Pulse Ox O2 Del Method 98.0 F 99 16 123/79 H 100 Room Air 12/05/22 00:24 12/05/22 02:11 12/05/22 02:11 12/05/22 00:24 12/05/22 02:11 12/05/22 02:11 Oxygen Delivery Method Room Air Weight: 211 lb 10.3 oz Body Mass Index (BMI) 38.7 Intake & Output: Intake and Output for Last 24 Hours 12/03/22 12/04/22 12/05/22 23:59 23:59 23:59 Intake Total 3001.33 / 3001.33 533.8 / 533.8 Output Total 1150 / 1150 500 / 500 Balance 1851.33 / 1851.33 33.8 / 33.8 Lab / Micro Data Result Diagrams: 12/04/22 07:57 Labs: Laboratory Results - last 24 hr 12/04/22 07:57: WBC 7.4, RBC 3.38 L, Hgb 10.0 L, Hct 30.9 L, MCV 91.4, MCH 29.6, MCHC 32.4, RDW Std Deviation 48.8 H, RDW Coeff of So 14.7 H, Plt Count 225, MPV 11.4, Immature Gran % (Auto) 1.800 H, Neut % (Auto) 57.5, Lymph % (Auto) 27.1, Clinch % (Auto) 11.9 H, Eos % (Auto) 1.2, Baso % (Auto) 0.5, Absolute Neuts (auto) 4.2, Absolute Lymphs (auto) 2.00, Nucleated RBC % 0 12/04/22 07:57: Blood Type A POSITIVE, Antibody Screen NEGATIVE 12/04/22 08:05: Syphilis Total Ab Non-reactive Physical Exam Const alert, oriented x3, no apparent distress, average body habitus, healthy appearing and well nourished HEENT normocephalic and moist oral mucous membranes Eyes PERRL Neck full ROM Resp normal respiratory effort, no retractions and no use of accessory muscles GI GI Narrative: Soft, nontender, bandage clean dry and intact Extremity normal to inspection and full ROM Neuro moves all extremities and no focal motor deficits Psych mental status grossly normal, affect normal, speech normal and activity/motor behavior normal Assessment & Plan (1) delivery delivered: PLAN: Postoperative day 1 status post primary section and bilateral tubal ligation for breech. Breast-feeding. Overall pain well controlled. Marce without severe features on labetalol 100 mg twice daily, blood pressures well controlled patient asymptomatic. Okay to discharge home today if okay with cardiovascular disease specialist
[2022-12-05] MEDS: 0.9% Saline Lock 10 ML Syringe IV ×2 (03:58→10:14)
[2022-12-05] MEDS: Ketorolac 30 MG/ML Syringe IV ×2 (03:58→10:14)
[2022-12-05] MEDS: Enoxaparin 40 MG/0.4 ML Syringe SC (05:22)
[2022-12-05 05:31] LABS: Hematocrit 29.7 % (37-47); Hemoglobin 9.5 g/dL (12.0-15.0); Mean Corpuscular Hgb 29.8 pg (27.0-32.0); Mean Corpuscular Volume 93.1 fL (81-99); Platelet Count 185 K/mm3 (150-450); RBC Distribution Width CV 14.5 % (11.6-14.6); Red Blood Count 3.19 M/mm3 (4.2-5.4); White Blood Count 10.3 K/mm3 (4.4-11.0)
[2022-12-05] MEDS: Albuterol 2.5 MG/3 ML VIAL.NEB. INHALATION (06:09)
[2022-12-05] MEDS: Senna/Docusate Sodium 1 Tablet PO (10:14)
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
[2022-12-05] MEDS: Ibuprofen 600 MG Tablet PO ×2 (15:58→21:28)
[2022-12-05] MEDS: oxyCODONE 5 MG Tablet PO (22:31)
[2022-12-06] MEDS: Acetaminophen 500 MG Tablet 1000 MG PO ×2 (03:33→09:58)
[2022-12-06] MEDS: Ibuprofen 600 MG Tablet PO ×2 (03:33→09:57)
[2022-12-06] MEDS: Enoxaparin 40 MG/0.4 ML Syringe SC (05:08)
[2022-12-06 07:55] VITALS: BP 125/93; PULSE 99; RESP 16; TEMP 36.7; O2SAT 98
[2022-12-06] MEDS: oxyCODONE 5 MG Tablet PO (08:01)
--- NOTE | 2022-12-06 09:01 | PCM.PN.OB ---
Subjective Subjective Pain controlled. Patient tired. Breast-feeding. Lochia minimal. No headache or vision changes, chest pain or shortness of breath, right upper quadrant pain. Objective Data Objective Data Vital Signs: Vital Signs Temp Pulse Resp BP Pulse Ox O2 Del Method 98.1 F 99 16 125/93 H 98 Room Air 12/06/22 07:55 12/06/22 07:55 12/06/22 07:55 12/06/22 07:55 12/06/22 07:55 12/06/22 07:55 Oxygen Delivery Method Room Air Weight: 96 kg Body Mass Index (BMI) 38.7 Intake & Output: Intake and Output for Last 24 Hours 12/04/22 12/05/22 12/06/22 23:59 23:59 23:59 Intake Total 3001.33 / 3001.33 533.8 / 533.8 Output Total 1150 / 1150 1200 / 1200 Balance 1851.33 / 1851.33 -666.2 / -666.2 Lab / Micro Data Attestation: I reviewed the patient's lab results. 12/05/22 05:25 Physical Exam Const alert, oriented x3 and no apparent distress HEENT normocephalic Head and Scalp: atraumatic Neck full ROM Resp normal respiratory effort Cardio regular rate GI normal to inspection, nondistended, normoactive bowel sounds GI Narrative: Uterus 2 cm below umbilicus, dressing clean and dry Back/Spine normal ROM Extremity normal to inspection Extremity Narrative: Minimal pedal edema Neuro no focal motor deficits and no sensory deficits noted Psych mental status grossly normal and affect normal Assessment & Plan (1) delivery delivered: PLAN: Postop day 2 status post primary section for breech. Complicated by superimposed preeclampsia without severe features. Blood pressure controlled on labetalol 100 mg twice daily. Signs and symptoms of preeclampsia reviewed. Postoperative wound care and pain control discussed. Discharge home today. (2) Acute postoperative pain: (3) Pre-eclampsia:
--- NOTE | 2022-12-06 09:02 | DS.PCM_ITS ---
Providers Date of Admission: 12/04/22 Primary Care Physician: Dr. Yudith Mukherjee MD Reason For Visit: PRIMARY C SECTION Diagnosis Discharge Diagnosis (1) delivery delivered: Status: Acute Code(s): O82 - Encounter for delivery without indication Plan: Postop day 2 status post primary section for breech. Complicated by superimposed preeclampsia without severe features. Blood pressure controlled on labetalol 100 mg twice daily. Signs and symptoms of preeclampsia reviewed. Pos toperative wound care and pain control discussed. Discharge home today. (2) Acute postoperative pain: Status: Acute Code(s): G89.18 - Other acute postprocedural pain (3) Pre-eclampsia: Status: Acute Code(s): O14.90 - Unspecified pre-eclampsia, unspecified trimester Medications at Discharge Home Medications albuterol sulfate 90 mcg/actuation aerosol inhaler (Proventil HFA) 6.7 g IH Q2H PRN PRN Wheezing ##1 03/23/15 labetalol 100 mg tablet 100 mg PO DAILY Check with primary doctor 09/23/22 oxycodone 5 mg tablet 5 mg PO Q6H PRN PRN Pain Score 7-10 4 days #16 tabs 12/05/22 Hospital Course Operations section Summary of Care Provided Hospital Course: Patient admitted for induction of labor for superimposed preeclampsia without severe features. Patient found to be breech upon admission. Patient had section. Stable for discharge postoperative day 2. Discharge home. Physical Exam Const alert, oriented x3 and no apparent distress HEENT normocephalic Head and Scalp: atraumatic Neck full ROM Resp normal respiratory effort Cardio regular rate GI normal to inspection, nondistended, normoactive bowel sounds GI Narrative: Uterus 2 cm below umbilicus, dressing clean and dry Back/Spine normal ROM Extremity normal to inspection Extremity Narrative: Minimal pedal edema Neuro no focal motor deficits and no sensory deficits noted Psych mental status grossly normal and affect normal Weight / BMI Weight Weight: 96 kg Body Mass Index (BMI) 38.7 ABG / Lab / Microbiology Data 12/05/22 05:25 D/C Instructions Discharge Diet: No restrictions May resume sexual activity in: 6-8 weeks Call your doctor if your incision/area has: Continuous Slow Oozing and Foul Smelling Discharge Call your doctor if you observe: Fever of 101 or Higher, Shortness of breath and Chest pain Please Follow Up With: Ayush Gibson MD When: 1 week blood pressure check, 2 weeks postoperative Meaningful Use Info Meaningful Use Diagnoses (Choose all that apply): None applicable Discharge Plan Admission Admit Date/Time: 12/04/22 07:00 Primary Reason for Your Visit: Primary section Attending Provider: Ayush Gibson Primary Care Provider: Yudith Mukherjee Instructions Additional Instructions / Restrictions: Regular diet. Okay to shower. No tub baths for 2 weeks. No lifting over 25 pounds for 2 to 3 weeks. No intercourse for 6 to 8 weeks. Call if headache, vision changes, chest pain, shortness of breath. Follow-up 1 week blood pressure check, 2 weeks Discharge Orders/Prescriptions Prescriptions: New oxycodone 5 mg Tablet 5 mg PO Q6H PRN PRN (Reason: Pain Score 7-10) 4 Days Qty: 16 0RF Continued albuterol sulfate [Proventil HFA] 6.7 GM HFA aerosol inhaler 6.7 g IH Q2H PRN PRN (Reason: Wheezing) Qty: 1 1RF Rx Instructions: labetalol 100 mg tablet 100 mg PO DAILY Patient Comments: TAKE 1 TABLET BY MOUTH EVERY DAY Discontinued aspirin 81 mg Tablet,Chewable 81 mg PO DAILY Keflex 500 mg PO.IVFORM DAILY oxycodone 5 mg Tablet 5 mg PO Q4H PRN PRN (Reason: Pain Score 6-10) 3 Days Qty: 14 0RF oxycodone 5 mg tablet 5 mg PO Q6H PRN (Reason: pain (scale score 7-10)) 3 Days Qty: 14 0RF ondansetron 4 mg tablet,disintegrating 4 mg PO Q6H PRN (Reason: nausea and vomiting) Qty: 30 1RF promethazine 12.5 mg tablet 12.5 mg PO Q6H PRN (Reason: nausea and vomiting) Qty: 60 1RF PNV #[id number] 27 mg iron-1 mg -300 mg-50 mg Capsule 1 cap PO DAILY Referrals / Follow Up: Yudith Mukherjee MD [Primary Care Provider] - Disposition Disposition (needs filled in before D/C Order can be placed): Home, Self Care
--- NOTE | 2022-12-06 09:36 | CASEMGMT ---
Social Work Labor and Delivery Unit ? Summary: Follow up regarding resources. ? Assessment:??Sw following up with patient prior to discharge. Sw presented to room and met briefly with mother of baby (LAVONNE Cook) who was sitting on bed with sleeping baby. Father of baby (FOB) asleep on couch but roused awake upon sw entry. Sw asked how things are going and if parents have any needs or concerns at this time. MOB denied. MOB states that the night went well and she got some rest. Sw asked MOB if she feels prepared for discharge, and MOB said she is ready to be home. Sw asked MOB if she is interested in a referral to [facility] at discharge, and MOB reports she is not interested at this time. MOB states that she did utilize [facility] with her son and is familiar with the services and resources that they provide. MOB states that if she becomes intersted she knows how to get connected with them. Sw provided support and congratulated parents on new baby. ? Intervention:?MOB awake and interacting with baby. MOB looks refreshed and prepared for discharge today. MOB receptive to sw involvement and support. ? Plan:??MOB and baby to be discharged today. No further concerns or needs. ? No other services requested or indicated. Libra Adair, SUPERVISOR STAGE CARPENTRY, SKIVING MACHINE OPERATOR
[2022-12-06 09:45] VITALS: BP 126/89
[2022-12-06] MEDS: Senna/Docusate Sodium 1 Tablet PO (09:56)
== END 2022-12-06 11:53 | disposition home or self-care (01) | DRG 785 ==
PROVIDERS: Student in an Organized Health Care Education/Training Program; Admitting Provider Obstetrics & Gynecology; PCP Internal Medicine; Visit Provider Obstetrics & Gynecology
DX: O32.1XX0 Maternal care for breech presentation, not applicable or unspecified (principal); O14.94 Unspecified pre-eclampsia, complicating childbirth; Z3A.37 37 weeks gestation of pregnancy; Z37.0 Single live birth
CPT/HCPCS: 59025; 59050; 76815; 85025; 85027; 86780; 86850; 86900; 86901; 88302; 94640; 99221; J7120; A4216; G0378; J2405

== ENCOUNTER → 2023-01-05 | Outpatient (CLI) | payer OTHER, SELFPAY ==
--- NOTE | 2023-01-05 10:30 | MRI_ITS ---
STUDY: BILATERAL BREAST MR WITHOUT AND WITH CONTRAST REASON FOR EXAM: Female, 27 years old. Family history of breast cancer and BRCA2 positive since 2020. Patient is breast-feeding. TECHNIQUE: Multi-sequence multi-echo imaging of both breasts was performed with a dedicated breast coil. T1-weighted and T2-weighted images were performed before the administration of contrast. T1-weighted images were also performed after the intravenous administration of 17 cc of Clariscan contrast. COMPARISON: Bilateral mammogram dated February 2022. Bilateral mammogram dated December 16, 2020. FINDINGS: RIGHT BREAST: The breasts are heterogenously dense, which may obscure small masses, with marked background enhancement which can lower the sensitivity of breast MRI for detection of small masses or small areas of non-mass enhancement, compatible with breast feeding. No abnormal enhancing masses or areas of non-mass enhancement in the right breast. LEFT BREAST: The breasts are heterogenously dense, which may obscure small masses, with marked background enhancement which can lower the sensitivity of breast MRI for detection of small masses or small areas of non-mass enhancement, compatible with breast feeding. No abnormal enhancing masses or areas of non-mass enhancement in the right breast. No enlarged or abnormal lymph nodes. No abnormality in the visualized regions of the chest or liver. MRI/Breast Bilateral W/O and W IMPRESSION: Heterogeneously dense breast tissue with marked background enhancement. No suspicious lesions. CATEGORY: BIRADS Category 2: Benign. A letter regarding these results will be sent to the patient by the facility within 30 days. Electronically Signed: Delmer Stewart MD at 10:40 EDT ,
[2023-01-05 10:59] LABS: CREATININE FINGERSTICK 1.1 mg/dL (0.55-1.02); EGFR FINGERSTICK > 60.0000 mL/min (>60)
== END | disposition home or self-care (01) ==
LOC: MRI 10:15
PROVIDERS: PCP Internal Medicine; Referring Provider Student in an Organized Health Care Education/Training Program; Visit Provider Student in an Organized Health Care Education/Training Program
DX: Z15.01 Genetic susceptibility to malignant neoplasm of breast (principal)
CPT/HCPCS: 77049; A9575; A4216; C8908

== ENCOUNTER → 2024-05-19 | Outpatient (CLI) | payer OTHER, SELFPAY ==
[2024-05-26 09:23] LABS: HPV APTIMA, High Risk Negative (Negative)
== END | disposition home or self-care (01) ==
PROVIDERS: PCP Internal Medicine; Referring Provider Nurse Practitioner Family; Visit Provider Nurse Practitioner Family
DX: N89.8 Other specified noninflammatory disorders of vagina (principal)
CPT/HCPCS: 87070; 87077; 87205; 87624; 88175; G0145

== ENCOUNTER → 2024-09-22 | Outpatient (CLI) | payer OTHER, SELFPAY ==
--- NOTE | 2024-09-22 08:44 | BI_ITS ---
EXAM: SCRN MAMM (CAD)W/RYAN BILAT DATE: 09/22/2024 CLINICAL HISTORY: F, Age 29 y/o , ANNUAL Patient has 3 paternal aunts who were diagnosed with breast cancer in their 50s. 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 Patient has tenderness in the lateral aspect of both breast over the past several years. Patient is still having nipple discharge which is clear, milky and greenish in color. Patient is BRCA2 positive. BREAST CANCER RISK ASSESSMENT: Has not been calculated. TECHNIQUE: Bilateral screening digital breast tomosynthesis with 2D and 3D images. Computer aided detection. COMPARISON: Prior exam(s) dated 02/27/2022. FINDINGS: TISSUE DENSITY: The breast tissue is composed of scattered area of fibroglandular density. Bilateral Breast Mammographic Findings: There are no suspicious masses, suspicious microcalcifications, architectural distortion or secondary sign of malignancy identified in either breast. The type of nipple discharge that the patient is describing is typically not associated with malignancy. There is no mammographic abnormality to correlate to her breast pain. If her symptoms continue or worsen, it may be of value to have a breast ultrasound exam. BI/SCRN MAMM (CAD)W/RYAN BILAT IMPRESSION: Right Breast: BIRADS 1 NEGATIVE. Left Breast: BIRADS 1 NEGATIVE. OVERALL FINAL ASSESSMENT: BIRADS 1 NEGATIVE RECOMMENDATION: Routine annual follow-up in 1 Year A letter with findings and recommendations will be mailed to the patient. Reading Location: [id number]
== END | disposition home or self-care (01) ==
LOC: OPBI 08:43
PROVIDERS: PCP Internal Medicine; Referring Provider Nurse Practitioner Family; Visit Provider Nurse Practitioner Family
DX: Z12.31 Encounter for screening mammogram for malignant neoplasm of breast (principal); Z80.3 Family history of malignant neoplasm of breast
CPT/HCPCS: 77063; 77067